=== PATIENT | female | born 1960 | race Caucasian/White ===

== ENCOUNTER 2018-10-10 08:40 | Day surgery (SDC) | payer OTHER ==
[2018-10-10] MEDS ORDERED: Xylocaine 1% Vial 30 ML PF IJ ONE (08:41)
[2018-10-10] MEDS ORDERED: Sodium Chloride 0.9(Preservative Free) 10 ML IJ ONE (08:41)
[2018-10-10] MEDS ORDERED: Depo-Medrol 40 MG/ML IM ONE (08:41)
--- NOTE | 2018-10-10 11:29 | XRAY ---
48 seconds fluoroscopy time in surgery for right L3-L4 VALENTINE.
--- NOTE | 2018-10-10 11:33 | XRAY ---
Indication: Right L3-L4 transforaminal VALENTINE. Intraoperative fluoroscopy was provided for 48 seconds. 4 digital spot image submitted for interpretation demonstrates posterior needle tips projecting over the expected course of the right L4 and L5 nerve roots. Small amount of contrast injected for needle tip placement. Correlate with intraoperative findings/report.
== END 2018-10-10 10:36 | disposition home or self-care (01) ==
LOC: SDC-PAIN 08:40
PROVIDERS: ATTEND Psychiatry & Neurology Pain Medicine
DX: M54.16 Radiculopathy, lumbar region (principal); E11.9 Type 2 diabetes mellitus without complications; F41.9 Anxiety disorder, unspecified
CPT/HCPCS: 64483; 64484; 72020; 77003; 82962; J1030; J2001; Q9966

== ENCOUNTER 2018-11-14 14:34 | Day surgery (SDC) | payer OTHER ==
[2018-11-14] MEDS ORDERED: Decadron 4 MG INJ IV ONE (14:35)
[2018-11-14] MEDS ORDERED: Xylocaine 1% Vial 30 ML PF IJ ONE (14:35)
--- NOTE | 2018-11-14 16:34 | XRAY ---
Indication: Right piriformis muscle injection. Intraoperative fluoroscopy was provided for 8 seconds. Single digital spot image submitted for interpretation demonstrates needle tip projecting over the expected right puriformis muscle. Small amount of contrast injected for needle tip placement. Correlate with intraoperative findings/report.
--- NOTE | 2018-11-14 16:34 | XRAY ---
8 seconds fluoroscopy time in surgery for right piriformis muscle injection.
== END 2018-11-14 16:39 | disposition home or self-care (01) ==
LOC: SDC-PAIN 14:34
PROVIDERS: ATTEND Psychiatry & Neurology Pain Medicine
DX: M79.18 Myalgia, other site (principal); E11.9 Type 2 diabetes mellitus without complications; F41.9 Anxiety disorder, unspecified; Z79.899 Other long term (current) drug therapy
CPT/HCPCS: 20552; 72020; 77002; 82962; J1100; J2001; Q9966

== ENCOUNTER 2019-04-24 15:09 | Day surgery (SDC) | payer OTHER ==
[2019-04-24] MEDS ORDERED: Marcaine 0.5% SDV 10 ML IJ ONE (15:10)
[2019-04-24] MEDS ORDERED: Xylocaine 1% Vial 30 ML PF IJ ONE (15:10)
[2019-04-24] MEDS ORDERED: Depo-Medrol 40 MG/ML IM ONE (15:10)
--- NOTE | 2019-04-24 17:05 | XRAY ---
Indication: Left greater trochanter injection. Intraoperative fluoroscopy was provided for 12 seconds. Single digital spot images submitted for interpretation demonstrates needle tip projecting just lateral to the left greater trochanter. Small amount of contrast injected for needle tip placement. Correlate with intraoperative findings/report.
--- NOTE | 2019-04-24 17:17 | XRAY ---
12 seconds fluoroscopy time in surgery for left greater trochanter bursa injection.
== END 2019-04-24 16:05 | disposition home or self-care (01) ==
LOC: SDC-PAIN 15:09
PROVIDERS: ATTEND Psychiatry & Neurology Pain Medicine
DX: M70.62 Trochanteric bursitis, left hip (principal); E11.9 Type 2 diabetes mellitus without complications; F41.9 Anxiety disorder, unspecified; Z79.899 Other long term (current) drug therapy
CPT/HCPCS: 20610; 73501; 77002; 82962; J1030; J2001; Q9966

== ENCOUNTER 2019-05-29 14:46 | Day surgery (SDC) | payer OTHER ==
[2019-05-29] MEDS ORDERED: Depo-Medrol 40 MG/ML IM ONE (14:47)
[2019-05-29] MEDS ORDERED: Marcaine 0.5% SDV 10 ML IJ ONE (14:47)
[2019-05-29] MEDS ORDERED: Xylocaine 1% Vial 30 ML PF IJ ONE (14:47)
--- NOTE | 2019-05-29 16:33 | XRAY ---
Indication: Left hip injection. Intraoperative fluoroscopy was provided for 14 seconds. Single digital spot image submitted for interpretation demonstrates needle tip projecting just lateral to the left femur neck. Small amount of contrast injected for needle tip placement. Correlate with intraoperative findings/report.
--- NOTE | 2019-05-29 16:37 | XRAY ---
14 seconds of fluoroscopy was used in surgery for a left intra-articular hip injection.
== END 2019-05-29 15:46 | disposition home or self-care (01) ==
LOC: SDC-PAIN 14:46
PROVIDERS: ATTEND Psychiatry & Neurology Pain Medicine
DX: M70.62 Trochanteric bursitis, left hip (principal); M25.519 Pain in unspecified shoulder
CPT/HCPCS: 20610; 73501; 77002; 82962; J1030; J2001; Q9966

== ENCOUNTER 2019-09-25 10:32 | Day surgery (SDC) | payer OTHER ==
[2019-09-25] MEDS ORDERED: Xylocaine 1% Vial 30 ML PF IJ ONE (10:33)
[2019-09-25] MEDS ORDERED: Depo-Medrol 40 MG/ML IM ONE (10:33)
[2019-09-25] MEDS ORDERED: Marcaine 0.5% SDV 10 ML IJ ONE (10:33)
--- NOTE | 2019-09-25 14:29 | XRAY ---
17 seconds fluoroscopy time in surgery for left SI joint injection.
--- NOTE | 2019-09-28 21:38 | XRAY ---
Indication: Left SI joint injection. Intraoperative fluoroscopy was provided for 17 seconds. AP and lateral digital spot images submitted for interpretation demonstrate a needle tip projected over the inferior aspect of the left sacroiliac joint. Correlate with intraoperative findings/report.
== END 2019-09-25 12:33 | disposition home or self-care (01) ==
LOC: SDC-PAIN 10:32
PROVIDERS: ATTEND Psychiatry & Neurology Pain Medicine
DX: M46.1 Sacroiliitis, not elsewhere classified (principal); E11.9 Type 2 diabetes mellitus without complications; Z79.899 Other long term (current) drug therapy
CPT/HCPCS: 27096; 72020; 77002; 82962; J1030; J2001; G0260

== ENCOUNTER 2020-08-12 13:43 | Day surgery (SDC) | payer OTHER ==
[2020-08-12] MEDS ORDERED: Xylocaine 1% Vial 30 ML PF IJ ONE (13:44)
[2020-08-12] MEDS ORDERED: BUPIVACAINE 0.5% VIAL IJ ONE (13:44)
[2020-08-12] MEDS ORDERED: Depo-Medrol 40 MG/ML IM ONE (13:44)
--- NOTE | 2020-08-13 23:03 | XRAY ---
Indication: Left shoulder joint injection. Intraoperative fluoroscopy was provided for 24 seconds. 2 digital spot images submitted for interpretation demonstrate the needle tip projected over the left shoulder joint space. A small amount of contrast has been injected for needle tip placement. Correlate with intraoperative findings/report.
--- NOTE | 2020-08-13 23:03 | XRAY ---
Indication: Right shoulder joint injection. Intraoperative fluoroscopy was provided for 29 seconds. 2 digital spot images submitted for interpretation demonstrate the needle tip to be projected over the right shoulder joint space. A small amount of contrast has been injected for needle tip placement. Correlate with intraoperative findings/report.
--- NOTE | 2020-08-14 07:05 | XRAY ---
24 seconds fluoroscopy time in surgery for intra-articular and bursa injections of the left shoulder.
--- NOTE | 2020-08-14 07:05 | XRAY ---
29 seconds fluoroscopy time in surgery for intra-articular and bursa injections of the right shoulder.
== END 2020-08-12 16:27 | disposition home or self-care (01) ==
LOC: SDC-PAIN 13:43
PROVIDERS: ATTEND Psychiatry & Neurology Pain Medicine
DX: M19.012 Primary osteoarthritis, left shoulder (principal); M19.011 Primary osteoarthritis, right shoulder; M75.52 Bursitis of left shoulder; M75.51 Bursitis of right shoulder; E11.9 Type 2 diabetes mellitus without complications; F41.9 Anxiety disorder, unspecified; Z79.899 Other long term (current) drug therapy
CPT/HCPCS: 20610; 73030; 77002; 82947; J1030; J2001; Q9966

== ENCOUNTER 2020-12-16 16:08 | Day surgery (SDC) | payer OTHER ==
[2020-12-16] MEDS ORDERED: Depo-Medrol 40 MG/ML IM ONE (16:09)
[2020-12-16] MEDS ORDERED: BUPIVACAINE 0.5% VIAL IJ ONE (16:09)
[2020-12-16] MEDS ORDERED: Xylocaine 1% Vial 30 ML PF IJ ONE (16:09)
--- NOTE | 2020-12-16 21:32 | XRAY ---
Indication: Left hip and greater trochanter bursa injections. Intraoperative fluoroscopy provided for 21 seconds. 2 digital spot image submitted for interpretation demonstrates needle tip projecting lateral to the left femur neck and greater trochanter. Small amount of contrast injected for both needle tip placement. Correlate with intraoperative findings/report.
--- NOTE | 2020-12-17 09:54 | XRAY ---
21 seconds of fluoroscopy was used in surgery for a left hip intra-articular and greater trochanteric bursa injection.
== END 2020-12-16 19:55 | disposition home or self-care (01) ==
LOC: SDC-PAIN 16:08
PROVIDERS: ATTEND Psychiatry & Neurology Pain Medicine
DX: M16.12 Unilateral primary osteoarthritis, left hip (principal); E11.9 Type 2 diabetes mellitus without complications; Z79.899 Other long term (current) drug therapy
CPT/HCPCS: 20610; 73502; 77002; 82947; J1030; J2001; Q9966

== ENCOUNTER 2021-04-21 10:53 | Day surgery (SDC) | payer OTHER ==
[2021-04-21] MEDS ORDERED: Xylocaine 1% Vial 30 ML PF IJ ONE (10:54)
[2021-04-21] MEDS ORDERED: BUPIVACAINE 0.5% VIAL IJ ONE (10:54)
[2021-04-21] MEDS ORDERED: Depo-Medrol 40 MG/ML IM ONE (10:54)
--- NOTE | 2021-04-21 14:48 | XRAY ---
23 seconds fluoroscopy time in surgery for intra-articular and subachromial injections of the left shoulder.
--- NOTE | 2021-04-21 14:57 | XRAY ---
Indication: Left shoulder and subacromial injections. Intraoperative fluoroscopy provided for 23 seconds. 3 digital spot images submitted for interpretation demonstrates needle tip projecting over the left glenohumeral joint superiorly. Second needle tip is subacromial. Small amount of contrast injected for both needle tip placement. Correlate with intraoperative findings/report.
== END 2021-04-21 13:51 | disposition home or self-care (01) ==
LOC: SDC-PAIN 10:53
PROVIDERS: ATTEND Psychiatry & Neurology Pain Medicine
DX: M19.012 Primary osteoarthritis, left shoulder (principal); M75.52 Bursitis of left shoulder; E11.9 Type 2 diabetes mellitus without complications; Z79.899 Other long term (current) drug therapy
CPT/HCPCS: 20610; 73030; 77002; 82947; J1030; J2001; Q9966

== ENCOUNTER 2021-05-26 13:12 | Day surgery (SDC) | payer OTHER ==
[2021-05-26] MEDS ORDERED: BUPIVACAINE 0.5% VIAL IJ ONE (13:13)
[2021-05-26] MEDS ORDERED: Depo-Medrol 40 MG/ML IM ONE (13:13)
[2021-05-26] MEDS ORDERED: Xylocaine 1% Vial 30 ML PF IJ ONE (13:13)
--- NOTE | 2021-05-26 16:33 | XRAY ---
Indication: Right shoulder injection. Intraoperative fluoroscopy provided for 50 seconds. 2 digital spot images submitted for interpretation demonstrates needle tip projecting over the right glenohumeral joint superiorly. Small amount of contrast injected for needle tip placement. Correlate with intraoperative findings/report.
--- NOTE | 2021-05-26 17:02 | XRAY ---
50 seconds fluoroscopy time in surgery for intra-articular injection of the right shoulder.
== END 2021-05-26 16:36 | disposition home or self-care (01) ==
LOC: SDC-PAIN 13:12
PROVIDERS: ATTEND Psychiatry & Neurology Pain Medicine
DX: M19.011 Primary osteoarthritis, right shoulder (principal); E11.9 Type 2 diabetes mellitus without complications; Z79.899 Other long term (current) drug therapy
CPT/HCPCS: 20610; 73030; 77002; 82947; J1030; J2001; Q9966

== ENCOUNTER 2021-06-30 13:48 | Day surgery (SDC) | payer OTHER ==
[2021-06-30] MEDS ORDERED: Xylocaine 1% Vial 30 ML PF IJ ONE (13:49)
[2021-06-30] MEDS ORDERED: Depo-Medrol 40 MG/ML IM ONE (13:49)
[2021-06-30] MEDS ORDERED: BUPIVACAINE 0.5% VIAL IJ ONE (13:49)
--- NOTE | 2021-06-30 17:06 | XRAY ---
Indication: Bilateral hip and bilateral greater trochanter bursa injections. Intraoperative fluoroscopy provided for 54 seconds. 5 digital spot image submitted for interpretation demonstrates needle tip projecting lateral to the left/right femur neck and left/right greater trochanter. Small amount of contrast injected for all needle tip placement. Correlate with intraoperative findings/report.
--- NOTE | 2021-06-30 17:10 | XRAY ---
54 seconds fluoroscopy time in surgery for injections of the greater trochanteric bursa of both hips.
== END 2021-06-30 16:57 | disposition home or self-care (01) ==
LOC: SDC-PAIN 13:48
PROVIDERS: ATTEND Psychiatry & Neurology Pain Medicine
DX: M16.0 Bilateral primary osteoarthritis of hip (principal); M70.62 Trochanteric bursitis, left hip; M70.61 Trochanteric bursitis, right hip; E11.9 Type 2 diabetes mellitus without complications; Z79.899 Other long term (current) drug therapy
CPT/HCPCS: 20610; 73522; 77002; 82947; J1030; J2001; Q9966

== ENCOUNTER 2021-12-15 08:12 | Day surgery (SDC) | payer OTHER ==
[2021-12-15] MEDS ORDERED: Depo-Medrol 40 MG/ML IM ONE (08:13)
[2021-12-15] MEDS ORDERED: Sodium Chloride 0.9(Preservative Free) 10 ML IJ ONE (08:13)
[2021-12-15] MEDS ORDERED: DIPRIVAN 200 MG/20 ML IV ONE (09:33)
[2021-12-15] MEDS ORDERED: Lactated Ringers 1,000 ML IV ONE (10:58)
--- NOTE | 2021-12-15 11:28 | XRAY ---
Indication: Left L4-S1 transforaminal VALENTINE. Intraoperative fluoroscopy provided for 52 seconds. 4 digital spot images submitted for interpretation demonstrate posterior needle tips projecting over the expected left L4 and L5 nerve roots. Small amount of contrast injected for needle tip placement. Correlate with intraoperative findings/report.
--- NOTE | 2021-12-15 12:13 | XRAY ---
52 seconds fluoroscopy time in surgery for left L4-S1 transforaminal VALENTINE
== END 2021-12-15 10:00 | disposition home or self-care (01) ==
LOC: SDC-PAIN 08:12
PROVIDERS: ATTEND Psychiatry & Neurology Pain Medicine
DX: M54.16 Radiculopathy, lumbar region (principal); E11.9 Type 2 diabetes mellitus without complications; Z79.899 Other long term (current) drug therapy
CPT/HCPCS: 64483; 64484; 72100; 77003; 82947; J1030; J2704; Q9966

== ENCOUNTER 2022-05-18 08:30 | Day surgery (SDC) | payer OTHER ==
[2022-05-18] MEDS ORDERED: DIPRIVAN 200 MG/20 ML IV ONE (08:31)
[2022-05-18] MEDS ORDERED: BUPIVACAINE 0.5% VIAL IJ ONE (08:31)
[2022-05-18] MEDS ORDERED: Depo-Medrol 40 MG/ML IM ONE (08:31)
[2022-05-18] MEDS ORDERED: Sodium Chloride 0.9(Preservative Free) 10 ML IJ ONE (08:31)
[2022-05-18] MEDS ORDERED: Pepcid 20 MG VIAL IV ONE (09:00)
[2022-05-18] MEDS ORDERED: Reglan 10 MG/2 ML ONE (09:00)
--- NOTE | 2022-05-18 10:37 | XRAY ---
Indication: Left L4-S1 transforaminal VALENTINE. Intraoperative fluoroscopy provided for 1 minute 17 seconds. 9 digital spot image submitted for interpretation demonstrates posterior needle tips projecting over the expected left L4 and L5 nerve roots. Small amount of contrast injected for needle tip placement. Correlate with intraoperative findings/report.
--- NOTE | 2022-05-18 10:38 | XRAY ---
10 seconds of fluoroscopy was used in surgery for a left intra-articular hip injection.
--- NOTE | 2022-05-18 10:38 | XRAY ---
One minute 17 seconds of fluoroscopy was used in surgery for a left L4-S1 transforaminal VALENTINE.
--- NOTE | 2022-05-18 10:39 | XRAY ---
Indication: Left hip injection. Intraoperative fluoroscopy provided for 10 seconds. Single digital spot image obtained prone submitted for interpretation demonstrates needle tip lateral to the left femur neck. Small amount of contrast injected for needle tip placement. Correlate with intraoperative findings/report.
[2022-05-18] MEDS ORDERED: Lactated Ringers 1,000 ML IV ONE (13:59)
== END 2022-05-18 10:35 | disposition home or self-care (01) ==
LOC: SDC-PAIN 08:30
PROVIDERS: ATTEND Psychiatry & Neurology Pain Medicine
DX: M54.16 Radiculopathy, lumbar region (principal); M16.12 Unilateral primary osteoarthritis, left hip; E10.9 Type 1 diabetes mellitus without complications; Z79.899 Other long term (current) drug therapy
CPT/HCPCS: 20610; 64483; 64484; 72100; 73501; 77002; 77003; 82947; J1030; J2704; Q9966

== ENCOUNTER 2022-07-13 13:46 | Day surgery (SDC) | payer OTHER ==
[~2022-07-13 13:46] MED LIST: DIPRIVAN 200 MG/20 ML IV ONE
[2022-07-13] MEDS ORDERED: Depo-Medrol 40 MG/ML IM ONE (13:47)
[2022-07-13] MEDS ORDERED: BUPIVACAINE 0.5% VIAL IJ ONE (13:47)
[2022-07-13] MEDS ORDERED: XYLOCAINE 1% HCL 20 ML MDV IJ ONE (13:47)
--- NOTE | 2022-07-13 16:39 | XRAY ---
Indication: Left knee injection. Intraoperative fluoroscopy provided for 7 seconds. Single digital spot image submitted for interpretation demonstrates needle tip projecting over the left femur intercondylar notch. Small amount of contrast injected for needle tip placement. Correlate with intraoperative findings/report.
--- NOTE | 2022-07-13 16:43 | XRAY ---
7 seconds of fluoroscopy was used in surgery for a left intra-articular knee and pes anserine injection.
== END 2022-07-13 16:00 | disposition home or self-care (01) ==
LOC: SDC-PAIN 13:46
PROVIDERS: ATTEND Psychiatry & Neurology Pain Medicine
DX: M17.12 Unilateral primary osteoarthritis, left knee (principal); Z79.899 Other long term (current) drug therapy
CPT/HCPCS: 20610; 73560; 77002; 82947; J1030; J2704; Q9966

== ENCOUNTER 2022-11-16 15:47 | Day surgery (SDC) | payer OTHER ==
[2022-11-16] MEDS ORDERED: Depo-Medrol 40 MG/ML IM ONE (15:48)
[2022-11-16] MEDS ORDERED: BUPIVACAINE 0.5% VIAL IJ ONE (15:48)
[2022-11-16] MEDS ORDERED: LIDOCAINE HCL 1% 50 MG/5 ML VL PF IJ ONE (15:48)
[2022-11-16] MEDS ORDERED: Lactated Ringers 1,000 ML IV ONE (16:58)
--- NOTE | 2022-11-16 20:05 | XRAY ---
Indication: Bilateral SI joint injection. Intraoperative fluoroscopy provided for 21 seconds. 5 digital spot images submitted for interpretation demonstrates posterior needle tip projecting over the expected left and right SI joint. Correlate with intraoperative findings/report.
--- NOTE | 2022-11-17 11:43 | XRAY ---
21 seconds of fluoroscopy was used in surgery for bilateral SI joint injections.
== END 2022-11-16 17:55 | disposition home or self-care (01) ==
LOC: SDC-PAIN 15:47
PROVIDERS: ATTEND Psychiatry & Neurology Pain Medicine
DX: M46.1 Sacroiliitis, not elsewhere classified (principal); E10.9 Type 1 diabetes mellitus without complications; Z79.899 Other long term (current) drug therapy
CPT/HCPCS: 27096; 72202; 77002; 82947; J1030; J2001; G0260

== ENCOUNTER 2023-06-14 14:40 | Day surgery (SDC) | payer OTHER ==
[2023-06-14] MEDS ORDERED: Depo-Medrol 40 MG/ML IM ONE (14:41)
[2023-06-14] MEDS ORDERED: XYLOCAINE-MPF 1% 5ML SDV IJ ONE (14:41)
[2023-06-14] MEDS ORDERED: BUPIVACAINE 0.5% VIAL IJ ONE (14:41)
--- NOTE | 2023-06-14 19:33 | XRAY ---
Indication: Bilateral SI joint injection. Intraoperative fluoroscopy provided for 30 seconds. 4 digital spot image submitted for interpretation demonstrates posterior needle tip projecting over the left and right SI joint. Correlate with intraoperative findings/report.
--- NOTE | 2023-06-15 12:16 | XRAY ---
30 seconds of fluoroscopy was used in surgery for a bilateral sacroiliac joint injection.
== END 2023-06-14 17:38 | disposition home or self-care (01) ==
LOC: SDC-PAIN 14:40
PROVIDERS: ATTEND Psychiatry & Neurology Pain Medicine
DX: M46.1 Sacroiliitis, not elsewhere classified (principal); E11.9 Type 2 diabetes mellitus without complications; Z79.899 Other long term (current) drug therapy
CPT/HCPCS: 27096; 72202; 77002; 82947; J1030; Q9966; G0260

== ENCOUNTER 2023-09-06 15:35 | Day surgery (SDC) | payer MEDICARE | END 2023-09-06 17:00 | disposition home or self-care (01) | LOC: SDC-PAIN 15:35 | PROVIDERS: ATTEND Psychiatry & Neurology Pain Medicine | DX: E11.65 Type 2 diabetes mellitus with hyperglycemia (principal) | CPT/HCPCS: 82947 ==

== ENCOUNTER 2024-03-20 15:29 | Day surgery (SDC) | payer MEDICARE, OTHER ==
[2024-03-20] MEDS ORDERED: LIDOCAINE HCL 1% AMPUL 5 ML IJ ONE (15:30)
[2024-03-20] MEDS ORDERED: GELSYN-3 IU ONE (15:30)
--- NOTE | 2024-03-20 19:07 | XRAY ---
Indication: Left knee injection. Intraoperative fluoroscopy provided for 10 seconds. Single digital spot image submitted for interpretation demonstrates needle tip projecting over left femur intercondylar notch. Small amount of contrast injected for all needle tip placement. Correlate with intraoperative findings/report.
--- NOTE | 2024-03-21 09:00 | XRAY ---
10 seconds of fluoroscopy used in surgery for a left intra-articular knee injection.
== END 2024-03-20 17:35 | disposition home or self-care (01) ==
LOC: SDC-PAIN 15:29
PROVIDERS: ATTEND Psychiatry & Neurology Pain Medicine
DX: M17.12 Unilateral primary osteoarthritis, left knee (principal); E11.9 Type 2 diabetes mellitus without complications
CPT/HCPCS: 20610; 73560; 77002; 82947; J7328; Q9966

== ENCOUNTER 2024-03-27 15:18 | Day surgery (SDC) | payer MEDICARE, OTHER ==
[2024-03-27] MEDS ORDERED: LIDOCAINE HCL 1% AMPUL 5 ML IJ ONE (15:19)
--- NOTE | 2024-03-27 19:31 | XRAY ---
Indication: Left knee injection. Intraoperative fluoroscopy provided for 10 seconds. Single digital spot image submitted for interpretation demonstrates needle tip projecting over left femur intercondylar notch. Small amount of contrast injected for needle tip placement. Correlate with intraoperative findings/report.
--- NOTE | 2024-03-27 19:35 | XRAY ---
10 seconds of fluoroscopy used in surgery for a left intra-articular knee injection.
== END 2024-03-27 17:25 ==
LOC: SDC-PAIN 15:18
PROVIDERS: ATTEND Psychiatry & Neurology Pain Medicine
DX: M17.12 Unilateral primary osteoarthritis, left knee (principal); E11.9 Type 2 diabetes mellitus without complications
CPT/HCPCS: 20610; 73560; 77002; 82947; Q9966

== ENCOUNTER 2024-04-03 14:26 | Day surgery (SDC) | payer MEDICARE, OTHER ==
[2024-04-03] MEDS ORDERED: GELSYN-3 IU ONE (14:27)
[2024-04-03] MEDS ORDERED: LIDOCAINE HCL 1% AMPUL 5 ML IJ ONE (14:27)
--- NOTE | 2024-04-03 21:07 | XRAY ---
Indication: Left knee injection. Intraoperative fluoroscopy provided for 7 seconds. Single digital spot image submitted for interpretation demonstrates needle tip projecting over left femur intercondylar notch. Small amount of contrast injected for needle tip placement. Correlate with intraoperative findings/report.
--- NOTE | 2024-04-04 08:40 | XRAY ---
7 seconds of fluoroscopy used in surgery for a left intra-articular knee injection.
== END 2024-04-03 17:44 | disposition home or self-care (01) ==
LOC: SDC-PAIN 14:26
PROVIDERS: ATTEND Psychiatry & Neurology Pain Medicine
DX: M17.12 Unilateral primary osteoarthritis, left knee (principal); E11.9 Type 2 diabetes mellitus without complications
CPT/HCPCS: 73560; 77002; 82947; J7328

== ENCOUNTER 2024-11-13 08:41 | Day surgery (SDC) | payer MEDICARE, OTHER ==
[2024-11-13] MEDS ORDERED: XYLOCAINE 1% HCL 20 ML MDV IJ ONE (08:42)
[2024-11-13] MEDS ORDERED: Depo-Medrol 40 MG/ML IM ONE (08:42)
[2024-11-13] MEDS ORDERED: Marcaine Mpf 0.5% Vial 30 Ml IJ ONE (08:42)
[2024-11-13] MEDS ORDERED: propofoL IV ONE (10:40)
[2024-11-13] MEDS ORDERED: Lactated Ringers 1,000 ML IV ONE (11:47)
--- NOTE | 2024-11-13 11:47 | XRAY ---
17 seconds of fluoroscopy was used in surgery for a left L4-S1 RFA.
--- NOTE | 2024-11-13 12:14 | XRAY ---
Indication: Left L4-S1 RFA. Intraoperative fluoroscopy provided for 17 seconds. 3 digital spot images submitted for interpretation demonstrates posterior needle tips projecting over expected left L4-S1 nerve roots. Correlate with intraoperative findings/report.
== END 2024-11-13 11:15 | disposition home or self-care (01) ==
LOC: SDC-PAIN 08:41
PROVIDERS: ATTEND Psychiatry & Neurology Pain Medicine
DX: M47.817 Spondylosis without myelopathy or radiculopathy, lumbosacral region (principal); E11.9 Type 2 diabetes mellitus without complications